=== PATIENT | female | born 1995 | race Caucasian/White ===

== ENCOUNTER 2020-04-17 11:47 | Outpatient (CLI) | payer OTHER, SELFPAY ==
--- NOTE | ~2020-04-17 | US_ITS ---
US breast RT complete DATE: 04/17/2020 12:19 INDICATION: Mastodynia, nipple discharge TECHNIQUE: Real-time imaging of the complete right breast COMPARISON: None FINDINGS: No suspicious solid mass, cyst or any suspicious shadowing is evident. IMPRESSION: BI-RADS Category 1: Negative Recommendation: None Reviewed, dictated and finalized at [facility]. Reviewed, dictated and finalized at location [facility].
== END 2020-04-17 11:48 | disposition home or self-care (01) ==
LOC: ANHIMG 11:50
PROVIDERS: PCP Internal Medicine; Visit Provider Nurse Practitioner Obstetrics & Gynecology
DX: N64.4 Mastodynia (principal); N64.52 Nipple discharge
CPT/HCPCS: 76641

== ENCOUNTER 2021-04-19 06:00 | Inpatient (IN) | payer OTHER, SELFPAY ==
[2021-04-19] VITALS (255 sets, daily range): BP systolic 87–161; BP diastolic 30–141; PULSE 25–205; RESP 16–18; TEMP 36.6–37.1; O2SAT 79–100
--- NOTE | 2021-04-19 06:20 | LDADM ---
This patient, Catalina Last, was admitted to Labor/Delivery/Recovery 102 on 04/19/21 at 06:00. Plans for labor, pain management and were discussed with patient. Patient/family oriented to hospital policies and general routines including ID bracelet, bed and alarms, visiting hours, pain management, procedures, bathroom and other care routines, personal items, smoking policy, room service/diet and guest tray routines, infant security routines, and visiting hours. Patient/Family are encouraged to report perceived risks to care and to ask questions if they do not understand what they are told or what they should do. See OBIX for further documentation.
[2021-04-19 06:50] LABS: Basophils Percent Auto 0.3 % (0.2-1.2); Eosinophils Absolute Auto 0.1 K/mm3 (0-0.3); Eosinophils Percent Auto 0.9 % (0-4.4); Hematocrit 30.4 % (37.0-47.0); Hemoglobin 9.9 g/dL (12.0-15.0); Immature Granulocyte Absolute 0.03 K/mm3 (0.00-0.031); Immature Granulocyte Percent A 0.5 % (0-0.5); Lymphocytes Absolute Auto 1.34 K/mm3 (0.9-3.2); Lymphocytes Percent Auto 20.3 % (18.3-44.2); Mean Corpuscular HGB Conc 32.6 g/dl (32-36); Mean Corpuscular Volume 89.1 fl (80-100); Mean Platelet Volume 10.9 fl (7.4-10.4); Monocytes Absolute Auto 0.5 K/mm3 (0.1-0.6); Monocytes Percent Auto 7.7 % (2.6-8.5); Neutrophils Absolute Auto 4.6 K/mm3 (1.3-6.7); Neutrophils Percent Auto 70.3 % (45.5-73.1); Platelet Count Result 230 k/mm3 (150-375); Red Blood Count 3.41 M/mm3 (4.2-5.4); Red Cell Distribution Width 13.3 % (11.5-14.5); White Blood Count 6.6 K/mm3 (4.5-10.0)
[2021-04-19] MEDS: LACTATED RINGERS 1,000 ML 125 ML IV CONT ×3 (06:50→18:08)
[2021-04-19] MEDS: OXYTOCIN 30 UNITS/NS 500 ML 30 UNITS/500 ML BAG IV CONT (06:51)
[2021-04-19 07:05] LABS: Amphetamine Screen Urine Negative (Negative); Barbiturate Screen Urine Negative (Negative); Benzodiazepines Screen Urine Negative (Negative); Cannabinoid Screen Urine Positive (Negative); Cocaine Screen Urine Negative (Negative); Methadone Screen Urine Negative (Negative); Opiate Screen Urine Negative (Negative); Phencyclidine Screen Urine Negative (Negative)
--- NOTE | 2021-04-19 07:45 | WPDOBADMIT ---
Obstetrics - Admit Note Admission Note: 26 y/o with a history of previous for NRFHT 5 years ago. Pt desires a trial of labor. Discussed risks including risk of uterine rupture which could be life threatening to mom and baby. record reviewed. No pertinent additions to the history and/or any subsequent changes in the physical findings that are not consistent with the expected course of the were found. Additions to the history and/or subsequent changes in the physical findings follow. None.
--- NOTE | 2021-04-19 07:46 | PM.IMHP ---
H&P: HPI History of Present Illness Date/Time: 04/19/21 07:46 26 y/o @ 40 weeks gestation with a history of previous for NRFHT 5 years ago. Pt desires a trial of labor. Discussed risks including risk of uterine rupture which could be life threatening to mom and baby. Chief Complaint: Induction of labor Review of Systems Review of Systems: All systems reviewed & are unremarkable except as noted in HPI and below PMFSH Family History Family History Father Type 2 diabetes mellitus Social History Social History Smoking status: Never smoker Second hand tobacco smoke exposure: No Substance use: never Spiritual care concerns: No Meds Home Medications and Allergies Home Medications Medication Instructions Recorded Confirmed Type prenat.vits,александр,[id number] 1 tablet PO DAILY 03/21/21 03/21/21 History [ #2] Allergies Allergy/AdvReac Type Severity Reaction Status Date / Time No Known Allergies Allergy Verified 04/19/21 06:16 Vital Signs Vital Signs - 24 hr 04/19/21 06:36 04/19/21 07:00 04/19/21 07:30 Pulse Rate 72 69 77 Blood Pressure 119/59 L 96/61 L 108/63 Exam Narrative: Exam Narrative: VSS Pt comfortable Abdomen gravid and soft with occasional contractions Fhr category 1 Cervix 1/50/-2 H&P: Results Labs Labs: Short CBC 04/19/21 Range/Units 06:40 WBC 6.6 (4.5-10.0) K/mm3 Hgb 9.9 L (12.0-15.0) g/dL Hct 30.4 L (37.0-47.0) % Plt Count 230 (150-375) k/mm3 Assessment and Plan Assessment and plan (1) Previous delivery affecting : Code(s): O34.219 - Maternal care for unspecified type scar from previous delivery Status: Acute (2) Encounter for trial of labor: Status: Acute Additional Plan Attempt arom. If no leaking by noon will attempt again. Low dose pitocin. Pt planning epidural for pain management.
--- NOTE | 2021-04-19 12:50 | WPDANESEPP ---
Anes - Eval Pre Procedure Procedure: Labor Epidural Date/Time: 04/19/21 12:50 Surgeon: Octaviano Preop Diagnosis: Labor Pain Pre Op Diagnosis: IOL Patient Data Age: 26 Gender: F Height: 1.65 m Weight: 82 kg Last Vital Signs Temp 36.8 C 04/19/21 10:30 Pulse 76 04/19/21 12:48 BP 114/62 04/19/21 12:48 Pulse Ox 100 04/19/21 12:49 Allergies Allergy/AdvReac Type Severity Reaction Status Date / Time No Known Allergies Allergy Verified 04/19/21 06:16 Home Medications Medication Instructions Recorded Confirmed Type prenat.vits,александр,[id number] 1 tablet PO DAILY 03/21/21 03/21/21 History [ #2] Laboratory Tests 04/19/21 04/19/21 04/19/21 06:40 06:40 06:40 WBC 6.6 K/mm3 K/mm3 (4.5-10.0) RBC 3.41 M/mm3 L M/mm3 (4.2-5.4) Hgb 9.9 g/dL L g/dL (12.0-15.0) Hct 30.4 % L % (37.0-47.0) MCV 89.1 fl fl (80-100) MCH 29.0 pg pg (26-34) MCHC 32.6 g/dl g/dl (32-36) RDW 13.3 % % (11.5-14.5) Plt Count 230 k/mm3 k/mm3 (150-375) MPV 10.9 fl H fl (7.4-10.4) Immature Gran % (Auto) 0.5 % % (0-0.5) Neut % (Auto) 70.3 % % (45.5-73.1) Lymph % (Auto) 20.3 % % (18.3-44.2) [place] % (Auto) 7.7 % % (2.6-8.5) Eos % (Auto) 0.9 % % (0-4.4) Baso % (Auto) 0.3 % % (0.2-1.2) Lymph # (Auto) 1.34 K/mm3 K/mm3 (0.9-3.2) [place] # (Auto) 0.5 K/mm3 K/mm3 (0.1-0.6) Eos # (Auto) 0.1 K/mm3 K/mm3 (0-0.3) Baso # (Auto) 0.0 K/mm3 K/mm3 (0.0-0.1) Abs Immat Gran (auto) 0.03 K/mm3 K/mm3 (0.00-0.031) Absolute Neuts (auto) 4.6 K/mm3 K/mm3 (1.3-6.7) Absolute Nucleated RBC 0.0 K/mm3 K/mm3 (0.0-0.012) Nucleated RBC % 0.0 % % (0.0-0.2) Urine Opiates Screen Urine Methadone Screen Ur Barbiturates Screen Ur Phencyclidine Scrn Ur Amphetamine Screen U Benzodiazepines Scrn Urine Cocaine Screen U Cannabinoids Screen RPR Pending Blood Type O Positive Antibody Screen Negative 04/19/21 06:40 WBC RBC Hgb Hct MCV MCH MCHC RDW Plt Count MPV Immature Gran % (Auto) Neut % (Auto) Lymph % (Auto) [place] % (Auto) Eos % (Auto) Baso % (Auto) Lymph # (Auto) [place] # (Auto) Eos # (Auto) Baso # (Auto) Abs Immat Gran (auto) Absolute Neuts (auto) Absolute Nucleated RBC Nucleated RBC % Urine Opiates Screen Negative (Negative) Urine Methadone Screen Negative (Negative) Ur Barbiturates Screen Negative (Negative) Ur Phencyclidine Scrn Negative (Negative) Ur Amphetamine Screen Negative (Negative) U Benzodiazepines Scrn Negative (Negative) Urine Cocaine Screen Negative (Negative) U Cannabinoids Screen Positive A (Negative) RPR Blood Type Antibody Screen : gestational age (KRISTI 04/19/21, ) Patient hx anesthesia problems: none Family hx anesthesia problems: none [facility] Family History Family History Father Type 2 diabetes mellitus Social History Social History Smoking status: Never smoker Second hand tobacco smoke exposure: No Substance use: never Spiritual care concerns: No Exam Day of Procedure 04/19/21 12:50 Patient weight: normal Heart: regular rate and rhythm Lungs: normal air movement Airway: Mallampati scale Neurological: alert and oriented
[2021-04-19] MEDS: SODIUM CHLORIDE 0.9% IV 300 ML 600 ML I-UTERINE (18:06)
[2021-04-19] MEDS: ONDANSETRON INJ 4 MG/2 ML VIAL IV PUSH (20:49)
[2021-04-20] VITALS (42 sets, daily range): BP systolic 85–132; BP diastolic 42–89; PULSE 61–121; RESP 16–18; TEMP 36.4–37.1; O2SAT 98–100
[2021-04-20] MEDS: LACTATED RINGERS 1,000 ML 125 ML IV CONT (00:34)
[2021-04-20] MEDS: SODIUM CHLORIDE 0.9% IV 300 ML 600 ML I-UTERINE (00:40)
--- NOTE | 2021-04-20 03:13 | P.PCNOB_ITS ---
OB - Delivery Note Procedure Delivery date: 04/20/21 Procedure: events: Previous Induction method: AROM and per pitocin protocol Delivery monitor: external FHT, external uterine and internal uterine Route of delivery: Episiotomy description: None Laceration Description: Vaginal - 1st Degree Delivery repair: vicryl Quantitative Blood Loss (ml): 144 Anesthesia type: Epidural Narrative: Mother and baby in stable condition. Cord gasses collected and handed off to staff. [place] Baby Date of : 04/20/21 Time of : 02:45 Weeks of gestation at delivery: 40 Infant gender: Male Weight (pounds): 7 Weight (ounces): 14 presentation: vertex position: Right Occiput Anterior Placenta delivery description: Spontaneous
[2021-04-20] MEDS: OXYTOCIN 30 UNITS/NS 500 ML 30 UNITS/500 ML BAG 125 UNITS IV CONT (03:19)
[2021-04-20] MEDS: WITCH HAZEL 40 PADS 1 PAD TOPICAL (05:15)
[2021-04-20] MEDS: BENZOCAINE 20% AER SPR (*SP) 56 GM CAN 1 SPRAY TOPICAL (05:15)
[2021-04-20] MEDS: IBUPROFEN 600 MG TABLET PO ×3 (05:15→19:44)
--- NOTE | 2021-04-20 05:33 | OBPPTRN ---
Patient transferred to post room #281 via wheelchair. Support person present. Oriented to unit, room, information board, rooming in, admission packet and security measures. Patient verbalizes understanding.
[2021-04-20] MEDS: DOCUSATE SODIUM 100 MG CAPSULE PO ×2 (09:12→17:12)
[2021-04-20] MEDS: MULTIVIT/MIN/PREN/FOL AC/IRON TABLET 1 TAB PO (09:12)
[2021-04-20] MEDS: POLYSACCHARIDE IRON COMPLEX 150 MG CAPSULE PO ×2 (09:12→17:12)
[2021-04-20 09:27] LABS: Rapid Plasma Reagin Non-Reactive (NonReactive)
--- NOTE | 2021-04-20 13:19 | PC.NURSE ---
Consulted with patient, reviewed infant feeding cues, frequencies, duration of feedings, feeding elimination flow sheet, and signs of adequate intake. Demonstrated stimulation techniques to wake infant for feeding. Mom states she breastfed one of her other children for 3 years. Assisted with multiple attempts to get infant to breast. Reviewed positioning/alignment, holding breast and asymmetrical latch on. Infant was unable to maintain latch. Infant was sleepy at the breast and gagging on some mucous. After multiple attempts to keep awake at breast at approximately 1130 infant put skin to skin in an upright position. Assisted mom in putting infant to breast again around noon. would latch but not continue to suck at breast. At 1230 mom decides to try some formula as she had done with a previous child the try to put infant to breast after giving a few mls of formula. Checked in on patient around 1300 and mom states she gave infant 5 mls of formula and then nursed on both sides. Mom states infant was able to maintain latch without discomfort to mother. Nipple care reviewed. Instructed mother to call out for RN assistance if she is unable to latch for feeding or she has discomfort with nursing. Instructed feeding should be initiated three hours from start of last feeding or if feeding cues are noted before. Mother voiced understanding of information shared.
--- NOTE | 2021-04-20 16:05 | PCCCNOTE ---
Received referral for positive THC. UDS and meconium is pending on . Met with pt. and father of baby at bedside. Pt. lives with father of baby and their 5 year old. She confirms THC use and states purchasing same from local dispensary. She denies use of any other substances. She denies history with DCFS. She states having support from family and friends. She states having all needed items to care for at discharge home. Offered additional resources and pt. accepted same. Encouraged she contact any/all of interest. Reported pt. situation to DCFS. It does not qualify for investigation. It will be kept on file. Intake #[id number]. Nursing reports no other concerns at this time.
[2021-04-20] MEDS: ACETAMINOPHEN 325 MG TABLET 650 MG PO ×2 (17:12→23:11)
--- NOTE | 2021-04-20 19:45 | PC.NURSE ---
Patient viewed the discharge video Mother & Baby Care, The First Two Weeks online. Patient was given the opportunity and encouraged to ask questions. Patient verbalized understanding of information shared and has been given the mother/baby guide for home reference.
[2021-04-21] MEDS: IBUPROFEN 600 MG TABLET PO (03:39)
[2021-04-21 04:44] LABS: Hematocrit 27.1 % (37.0-47.0); Hemoglobin 8.7 g/dL (12.0-15.0)
--- NOTE | 2021-04-21 08:26 | WPDANLDPN2 ---
Anes-Prog Note L&D Date/Time: 04/21/21 08:26 Comfortable throughout: labor Neuraxial method: epidural Epidural/Spinal procedure site: clean & non-tender Neuro status: Neuro function grossly intact. Cardiovascular status: normal Respiratory status: normal Airway patency: baseline Mental status: baseline Post-Op hydration status: normal Vital Signs: Last Vital Signs Temp 36.4 C 04/20/21 23:10 Pulse 66 04/20/21 23:10 Resp 16 04/20/21 23:10 BP 112/60 04/20/21 23:10 Pulse Ox 99 04/20/21 23:10 Pain score (VAS): none Post-procedural complaints: none Patient feedback: Patient satisfied with anesthetic care.
[2021-04-21] MEDS: ACETAMINOPHEN 325 MG TABLET 650 MG PO (08:38)
[2021-04-21] MEDS: MULTIVIT/MIN/PREN/FOL AC/IRON TABLET 1 TAB PO (08:39)
[2021-04-21] MEDS: DOCUSATE SODIUM 100 MG CAPSULE PO (08:39)
[2021-04-21] MEDS: POLYSACCHARIDE IRON COMPLEX 150 MG CAPSULE PO (08:39)
--- NOTE | 2021-04-21 10:24 | PM.OBPNVD ---
OB - PN: Subj Subjective Date/time seen: 04/21/21 10:24 Patient comments: no complaints and pain well controlled baby status: doing well Narrative: Desires DC home today. E/A/V. OB - PN: Obj Data Labs CBC & Chem 7: 04/21/21 03:44 Labs: Laboratory Results - last 24 hr 04/21/21 03:44 Hgb 8.7 L Hct 27.1 L OB - PN A/P Plan day: 1 Plan: routine care and discharge home Comments: DC instructions given circ today after consented. Time Spent With Patient Time: Total time spent is greater than 50% in coordination of care (as documented) at patient's floor/unit and/or counseling patient: Time with patient: less than 15 minutes Exam Narrative: Exam Narrative: NAD abdomen soft, nontender, fundus firm below the umbilicus Extremities nontender, 1+ edema
--- NOTE | 2021-04-21 10:34 | PM.DS ---
DS: Admitting Diagnosis Admitting Diagnosis Admitting Diagnosis: term IUD, prior CS DS: Discharge Diagnosis Discharge Diagnosis (1) (vaginal after ): Code(s): O34.219 - Maternal care for unspecified type scar from previous delivery Status: Acute DS: Summary Hospital Course Reason for hospitalization: term IUP Hospital Course: Pt had an uncomplicated and an uncomplicated course and was discharged home on PPD 1. Status at Discharge Functional status at discharge: independent ambulation Time Spent with Patient Time attestation: Total time spent providing and/or coordinating discharge services: Time spent: Less than 30 minutes Exam Narrative: Exam Narrative: NAD abdomen soft, appropriately tender Ext non tender, 1+ edema DS: Data Data Completed and Pending Labs on day of discharge: Labs from last 24 hours 04/21/21 03:44 Hgb 8.7 L Hct 27.1 L Discharge Plan Discharge Attending physician on discharge: Prerna Cain Discharging Clinician: Prerna Cain Anticipated Discharge Date/Time: 04/21/21 14:00 Patient Disposition: Home, Self-Care Activity: pelvic rest Diet: as tolerated Patient Instructions: Antibiotic Form Stand Alone Forms: General Discharge Information Follow-up/Referrals: Prerna Cain MD [Physician] - 4 Weeks Discharge Medications: Continued #2 Tablet 1 tablet PO DAILY RF: 0 Date of admission: 04/19/21 06:00 Primary Care Provider: JericaSandi Admitting Provider: Daina Brumfield Attending physician on admission: Daina Brumfield Condition: Stable
[2021-04-21 10:45] VITALS: BP 110/65; PULSE 65; RESP 18; TEMP 36.8
[2021-04-23 10:01] VITALS: BP 121/74; PULSE 68; RESP 16; TEMP 36.9; O2SAT 99
== END 2021-04-21 13:51 | disposition home or self-care (01) | DRG 807 ==
LOC: ANHOB2 04-21 13:13 → ANHLDR 04-24 08:55 → ANHOB2 04-24 08:55
PROVIDERS: Advanced Practice Midwife; Admitting Provider Obstetrics & Gynecology; PCP Internal Medicine; Visit Provider Obstetrics & Gynecology
DX: O34.211 Maternal care for low transverse scar from previous cesarean delivery (principal); Z37.0 Single live birth; Z3A.40 40 weeks gestation of pregnancy; O69.81X0 Labor and delivery complicated by cord around neck, without compression, not applicable or unspecified; O70.0 First degree perineal laceration during delivery
CPT/HCPCS: 36415; 80307; 85014; 85018; 85025; 86592; 86850; 86900; 86901; A9270; J2405; J2590; J2795; J7030; J7120

== ENCOUNTER 2021-07-30 08:58 | Emergency (ER) | payer OTHER, SELFPAY ==
[2021-07-30 09:10] VITALS: BP 113/68; PULSE 65; RESP 16; TEMP 36.7; O2SAT 100
--- NOTE | 2021-07-30 09:37 | ED.EAR ---
HPI - Ear Problem General Chief complaint: Ear Stated complaint: clogged ear Time Seen by Provider: 07/30/21 09:37 Source: patient Mode of arrival: ambulatory History of Present Illness HPI Narrative: Patient had a telehealth visit yesterday and was prescribed Flonase for bilateral ear congestion and pressure. Patient states she is use the Flonase twice and still continues to have the feeling of fullness in both of her ears. Patient denies any fever no cough no shortness of breath no other symptoms. Patient is breast-feeding and is unable to take any antihistamines at this time. Complaint: ear pain Related Data Home Medications Medication Instructions Recorded Confirmed No Home Medications 07/30/21 07/30/21 Allergies Allergy/AdvReac Type Severity Reaction Status Date / Time No Known Allergies Allergy Verified 07/30/21 09:36 Review of Systems Review of Systems: CONSTITUTIONAL: Denies fever, chills, or sweats. EYES: Denies visual changes, redness, or discharge. ENT: Denies rhinorrhea, congestion, sore throat, or otalgia. CARDIOVASCULAR: Denies chest pain, palpitations, or edema. RESPIRATORY: Denies cough or dyspnea. GASTROINTESTINAL: Denies abdominal pain, nausea, vomiting, or diarrhea. GENITOURINARY: Denies dysuria or hematuria. SKIN: Denies rash or itching. MUSCULOSKELETAL: Denies back pain, joint pain, or myalgia. NEUROLOGIC: Denies headache, numbness, or weakness. PSYCHIATRIC: Denies anxiety or depression. PMFSH Comments At time of signature, agree with nursing past medical, surgical, social and family history. There is no relevant family history pertinent to the presenting complaint Exam Narrative: GENERAL: Well-appearing, well-nourished, and in no acute distress. HEAD: Normocephalic, atraumatic. EYES: PERRLA and EOMI. ENT: Nares clear, no rhinorrhea or epistaxis. Mucous membranes moist. Bilateral TM dullness NECK: Supple. CHEST: Clear to auscultation. No respiratory distress. HEART: Regular rate and rhythm. No murmur heard. Normal peripheral pulses. ABDOMEN: Soft, nontender, nondistended, normal active bowel sounds. EXTREMITIES: Normal range of motion. No edema. SKIN: Warm, dry, no rash. NEURO: No focal deficits. Alert and oriented x3. Sharri Coma Scale Eye Opening: Spontaneous 4 Sharri Coma Scale Motor: Obeys Commands 6 Sharri Coma Scale Verbal: Oriented 5 [place] Coma Scale Total 15 Course Vital Signs Vital signs: Vital Signs Temperature 36.7 C 07/30/21 09:10 Pulse Rate 65 07/30/21 09:10 Respiratory Rate 16 07/30/21 09:10 Blood Pressure 113/68 07/30/21 09:10 Pulse Oximetry 100 07/30/21 09:10 Temperature 36.7 C 07/30/21 09:10 Pulse Rate 65 07/30/21 09:10 Respiratory Rate 16 07/30/21 09:10 Blood Pressure 113/68 07/30/21 09:10 Pulse Oximetry 100 07/30/21 09:10 Medical Decision Making Differential Diagnosis Differential Diagnosis: Postnasal drainage, eustachian tube dysfunction, URI otitis media Vital Signs Vital Signs: Vital Signs Temperature 36.7 C 07/30/21 09:10 Pulse Rate 65 07/30/21 09:10 Respiratory Rate 16 07/30/21 09:10 Blood Pressure 113/68 07/30/21 09:10 Pulse Oximetry 100 07/30/21 09:10 Temperature 36.7 C 07/30/21 09:10 Pulse Rate 65 07/30/21 09:10 Respiratory Rate 16 07/30/21 09:10 Blood Pressure 113/68 07/30/21 09:10 Pulse Oximetry 100 07/30/21 09:10 Critical Care Time Critical Care Time Critical Care Time: No Discharge Plan Discharge Clinical Impression: Eustachian tube dysfunction Patient Disposition: Home, Self-Care Condition: Stable Instructions: Antibiotic Form, Fluticasone (Into the nose) Additional Instructions: Use Flonase 2 sprays each nostril twice a day as instructed Follow-up with primary care provider 2 to 3 days as needed If any new or worsening symptoms go to ER immediately for further evaluation treatment Prescriptions: No Action No Home Medica
== END 2021-07-30 09:56 | disposition home or self-care (01) ==
PROVIDERS: Emergency Provider Nurse Practitioner Family; PCP Internal Medicine
DX: H69.93 Unspecified Eustachian tube disorder, bilateral (principal)
CPT/HCPCS: 99211; G0463